=== PATIENT | female | born 1980 | race Two or more races ===

== ENCOUNTER 2017-04-12 06:11 | Inpatient (IN) | payer MEDICAID ==
[~2017-04-12] VITALS: Ht 157.5 cm; Wt 94.5 kg
[2017-04-12 07:06] LABS: BASOPHIL % 0.7 % (0-2); PLATELET COUNT 322 x10^3mcL (130-400); RED CELL DISTRIBUTION WIDTH 14.2 % (11.5-14.5)
[2017-04-12 07:33] LABS: CALCIUM 8.7 mg/dL (8.5-10.1); CARBON DIOXIDE 25.1 mmol/L (21-32); CHLORIDE SERUM 106 mmol/L (98-107); CREATININE SERUM 0.8 mg/dL (0.6-1.0); GFR1 > 60 mL/min; GLUCOSE SERUM 121 mg/dL (74-106); POTASSIUM SERUM 3.9 mmol/L (3.5-5.1); SODIUM SERUM 141 mmol/L (136-145)
[2017-04-12 07:46] LABS: ALBUMIN 3.8 g/dL (3.4-5.0); ALKALINE PHOSPHATASE 77 U/L (46-116); ALT/SGPT 70 U/L (14-59); AMYLASE 20 U/L (25-115); AST/SGOT 34 U/L (15-37); CHOLESTEROL 174 mg/dL (<200); HDL CHOLESTEROL 46 mg/dL (40-60); LIPASE 109 IU/L (73-393); T4(THYROXINE) 8.3 ug/dL (4.7-13.3); TOTAL PROTEIN, SERUM 7.5 g/dL (6.4-8.2)
[2017-04-12 08:17] LABS: microscopic required? YES; urine erythrocyte TRACE (NEGATIVE)
[2017-04-12 08:45] LABS: AMPHETAMINE QUAL UR NONE DETECTED (NEG <=1000)
[2017-04-12 10:20] LABS: PHOSPHOROUS 3.6 mg/dL (2.5-4.9)
[2017-04-12 14:08] VITALS: BP 120/78
[2017-04-12 14:49] VITALS: BP 121/66
[2017-04-12 17:35] VITALS: BP 126/88
[2017-04-12 22:16] VITALS: BP 111/63
[2017-04-13 05:52] VITALS: BP 119/65
[2017-04-13 06:54] LABS: BASOPHIL % 0.8 % (0-2); PLATELET COUNT 268 x10^3mcL (130-400); RED CELL DISTRIBUTION WIDTH 13.7 % (11.5-14.5)
[2017-04-13 07:10] LABS: CARBON DIOXIDE 26.5 mmol/L (21-32); CHLORIDE SERUM 109 mmol/L (98-107); CREATININE SERUM 0.7 mg/dL (0.6-1.0); GFR1 > 60 mL/min; GLUCOSE SERUM 120 mg/dL (74-106); POTASSIUM SERUM 4.3 mmol/L (3.5-5.1); SODIUM SERUM 138 mmol/L (136-145)
[2017-04-13 10:50] VITALS: BP 120/79
[2017-04-13 14:21] VITALS: BP 130/67
[2017-04-13 17:20] VITALS: BP 116/68
[2017-04-13 21:50] VITALS: BP 125/56
[2017-04-14 05:22] VITALS: BP 103/62
[2017-04-14 07:30] VITALS: BP 117/77
[2017-04-14 09:54] VITALS: BP 108/62
[2017-04-14] MEDS ORDERED: ATORVASTATIN CA40 M1 PO (12:21)
[2017-04-14] MEDS ORDERED: FIORICET1 CAP PO (12:22)
[2017-04-14 12:58] VITALS: BP 108/62
== END 2017-04-14 14:32 | disposition home or self-care (01) | DRG 54 ==
LOC: ED 06:11 → DU 08:36
PROVIDERS: Emergency Medicine; ADMIT Family Medicine
DX: G43.909 Migraine, unspecified, not intractable, without status migrainosus (principal); N17.0 Acute kidney failure with tubular necrosis; E86.0 Dehydration; R25.2 Cramp and spasm; E87.8 Other disorders of electrolyte and fluid balance, not elsewhere classified; R74.0 Nonspecific elevation of levels of transaminase and lactic acid dehydrogenase [LDH]; F43.23 Adjustment disorder with mixed anxiety and depressed mood; F41.9 Anxiety disorder, unspecified; Z68.38 Body mass index [BMI] 38.0-38.9, adult
CPT/HCPCS: 82962; 83880; J2270; J2550; J7030; Q0092